=== PATIENT | male | born 2000 | race Caucasian/White ===

== ENCOUNTER 2020-12-25 22:50 | Emergency (ER) | payer OTHER ==
[~2020-12-25 22:50] MED LIST: CYCLOBENZAPRINE10 MG PO; DELSYM30 MG/5 ML PO; FLONASE 0.05% N16 GM; IBUPROFEN600 MG PO; LODINE CAP 300300 MG PO; ZYRTEC10 M2 PO; ZYRTEC10 MG PO
[2020-12-26 02:57] LABS: RED BLOOD COUNT 5.03 M/UL (4.20-5.50); WHITE BLOOD COUNT 7.9 K/UL (4.5-11.0)
[2020-12-26 03:17] LABS: BUN/CREATININE RATIO 13 (0-10)
== END 2020-12-26 04:00 | disposition home or self-care (01) ==
LOC: ER1 22:50
PROVIDERS: Family Medicine
DX: R39.198 Other difficulties with micturition (principal); N50.812 Left testicular pain; G89.29 Other chronic pain; Z86.16 Personal history of COVID-19
CPT/HCPCS: 36415; 80053; 81001; 85025; 86140; 99284

== ENCOUNTER 2021-10-06 04:53 | Emergency (ER) | payer OTHER ==
[2021-10-07 21:08] LABS: CHLAMYDIA TRACHOMATIS, NAA Negative (Negative); NEISSERIA GONORRHOEAE, NAA Negative (Negative)
== END 2021-10-06 07:18 | disposition home or self-care (01) ==
LOC: ER1 04:53
PROVIDERS: Physician Assistant Medical
DX: A74.9 Chlamydial infection, unspecified (principal); Z20.2 Contact with and (suspected) exposure to infections with a predominantly sexual mode of transmission; R30.0 Dysuria
CPT/HCPCS: 81001; 96374; 99283; J0696

== ENCOUNTER 2022-02-03 12:52 | Emergency (ER) | payer OTHER ==
[2022-02-03] MEDS ORDERED: ACULAR 0.5% OP S5 ML EYELF (14:36)
[2022-02-03] MEDS ORDERED: CILOXAN 0.3% O2.5 ML OS (14:36)
== END 2022-02-03 14:50 | disposition home or self-care (01) ==
LOC: ER1 12:52
DX: H10.9 Unspecified conjunctivitis (principal); B34.9 Viral infection, unspecified; F17.210 Nicotine dependence, cigarettes, uncomplicated
CPT/HCPCS: 99283